=== PATIENT | male | born 1975 | race Caucasian/White ===

== ENCOUNTER → 2022-04-09 | Outpatient (CLI) | payer BC ==
--- NOTE | 2022-04-09 18:09 | Diagnostic Imaging Report ---
INDICATION: Left knee pain. COMPARISON: No previous for comparison. FINDINGS: 3 views. Nonweightbearing views. There are two cannulated bone screws and a wire suture transfixing the patella. There is no evidence of acute patellar fracture. There is a moderate arthritic change of the patellofemoral joint. Patella appears in good position with the trochlea. There is moderate arthritic disease throughout the joints. There is moderate hypertrophic change seen along the lateral femoral condyle. IMPRESSION: Multi-compartmental arthritic changes. Postsurgical changes to the patella with no hardware complications noted. No acute abnormality. Dictated by: Dictated on workstation # [id number]
== END ==
LOC: RAD FS 11:13
PROVIDERS: ATTEND Nurse Practitioner
DX: M17.12 Unilateral primary osteoarthritis, left knee (principal); Z98.890 Other specified postprocedural states
CPT/HCPCS: 73562